=== PATIENT | male | born 1970 | race Caucasian/White ===

== ENCOUNTER 2022-04-01 04:23 | Emergency (ER) | payer BC, SELFPAY ==
--- NOTE | ~2022-04-01 | CT_ITS ---
EXAMINATION: CT abdomen pelvis wo con DATE: 04/01/2022 05:35 INDICATION: Right-sided flank pain TECHNIQUE: Computed tomography (CT) of the abdomen and pelvis was performed without intravenous contr ast. The dose-length product was 1343.76 mGy-cm. Automated exposure control and iterative reconstruct ion technique were employed. COMPARISON: CT dated 04/14/2013. FINDINGS: Lung bases are unremarkable. Heart size normal. No significant pleural or pericardial effus ion. There is a 2-3 mm stone in the bladder which may represent a recently passed stone or right UVJ stone. There is mild right hydronephrosis. There are liver cysts. The spleen, pancreas, adrenal glands and left kidney are unremarkable. No left hydronephrosis. There is a surgical anastomotic line in the distal colon. Colonic diverticulosis wit hout evidence for diverticulitis. Gallbladder is present. No significant vascular abnormality. No lym phadenopathy. No abnormal pelvic masses or fluid collections. IMPRESSION: 1. Bladder stone posteriorly on the right measuring 2-3 mm. This may represent a recently passed ston e or right UVJ stone. There is mild right hydronephrosis. Reviewed, dictated and finalized at location A. IMPRESSION: 1. Bladder stone posteriorly on the right measuring 2-3 mm. This may represent a recently passed stone or right UVJ stone. There is mild right hydronephrosis.
[2022-04-01 04:24] VITALS: BP 149/89; PULSE 85; RESP 26; TEMP 36.4; O2SAT 98
[2022-04-01] MEDS: ONDANSETRON INJ 4 MG/2 ML VIAL IV PUSH (04:45)
[2022-04-01] MEDS: MORPHINE SULFATE (*CRX) 4 MG/ML INJ IV PUSH (04:45)
[2022-04-01] MEDS: SODIUM CHLORIDE 0.9% IV 1,000 ML 999 ML IV CONT (04:50)
[2022-04-01 04:51] LABS: Basophils Percent Auto 0.4 % (0.2-1.2); Eosinophils Absolute Auto 0.3 K/mm3 (0-0.3); Hemoglobin 15.1 g/dL (14.0-18.0); Immature Granulocyte Absolute 0.04 K/mm3 (0.00-0.031); Immature Granulocyte Percent A 0.5 % (0-0.5); Lymphocytes Absolute Auto 2.66 K/mm3 (0.9-3.2); Lymphocytes Percent Auto 32.4 % (18.3-44.2); Mean Corpuscular HGB Conc 34.3 g/dl (32-36); Mean Corpuscular Volume 90.3 fl (80-100); Mean Platelet Volume 11.6 fl (7.4-10.4); Monocytes Absolute Auto 0.8 K/mm3 (0.1-0.6); Monocytes Percent Auto 9.6 % (2.6-8.5); Neutrophils Absolute Auto 4.4 K/mm3 (1.3-6.7); Neutrophils Percent Auto 54.1 % (45.5-73.1); Platelet Count Result 251 k/mm3 (150-375); Red Blood Count 4.87 M/mm3 (4.6-6.20); Red Cell Distribution Width 12.4 % (11.5-14.5); White Blood Count 8.2 K/mm3 (4.5-10.0)
[2022-04-01 05:05] LABS: Alanine Aminotransferase 33 U/L (6-50); Albumin Level 4.1 g/dL (3.5-5.1); Alkaline Phosphatase 145 U/L (38-126); Anion Gap 8 mmol/L (8-16); Aspartate Amino Transferase 28 U/L (17-59); Bilirubin,Total 0.4 mg/dL (0.2-1.3); Blood Urea Nitrogen 15 mg/dL (9-20); Calcium 8.6 mg/dL (8.4-10.2); Carbon Dioxide 25 mmol/L (22-30); Chloride 106 mmol/L (98-107); Estimated CRCL calculation 102 ml/min; Estimated Glomerular Filt Rate > 60; Glucose 139 mg/dL (65-110); Lipase 127 U/L (23-300); Potassium 3.6 mmol/L (3.4-5.0); Sodium 139 mmol/L (137-145)
--- NOTE | 2022-04-01 05:42 | ED.ABDPAIN ---
HPI - Abdominal Pain General Chief Complaint: Abdominal Pain Stated Complaint: Abd pain Time Seen by Provider: 04/01/22 04:31 Source: patient History of Present Illness HPI narrative: Patient presents with right flank pain. Patient ports symptoms started a couple hours ago and gotten progressively worse and unable to get comfortable so he came to the ER for evaluation. Reports his pain is primarily on his right abdomen radiates to his back into his groin. It is a sensation of being done a bowel movement but he has been unable to do so. Denies any hematuria or dysuria. He is unable to identify any clear aggravating or alleviating factors. Does report some nausea and vomiting but feels its related to the severity of his pain. Denies any fevers, chest pain, shortness of breath, lightheadedness, dizziness. Ports never pain like this before. Related Data Allergies Allergy/AdvReac Type Severity Reaction Status Date / Time No Known Allergies Allergy Unknown Unknown Verified 04/01/22 04:52 Review of Systems Review of Systems: CONSTITUTIONAL: Denies fever, chills, or sweats. EYES: Denies visual changes, redness, or discharge. ENT: Denies rhinorrhea, congestion, sore throat, or otalgia. CARDIOVASCULAR: Denies chest pain, palpitations, or edema. RESPIRATORY: Denies cough or dyspnea. GASTROINTESTINAL: Abdominal pain with nausea and vomiting GENITOURINARY: Denies dysuria or hematuria. SKIN: Denies rash or itching. MUSCULOSKELETAL: Denies back pain, joint pain, or myalgia. NEUROLOGIC: Denies headache, numbness, dizziness, or weakness. PSYCHIATRIC: Denies anxiety or depression. All systems reviewed & are unremarkable except as noted in HPI and below [facility] Past Medical History Medical History (Updated 04/01/22 @ 07:32 by Ben Calvillo MD) Hypertension Social History Social History (Updated 04/01/22 @ 05:44 by Ben Calvillo MD) Alcohol intake: current Exam Narrative: GENERAL: Well-appearing, well-nourished, and in no acute distress. HEAD: Normocephalic, atraumatic. EYES: PERRLA and EOMI. ENT: Nares clear, no rhinorrhea or epistaxis. Mucous membranes moist. NECK: Supple. No masses. No JVD CHEST: Clear to auscultation. No respiratory distress. No wheezes rales or rhonchi HEART: Regular rate and rhythm. No murmur heard. Normal peripheral pulses. ABDOMEN: Unable to reproduce pain with palpation of the right abdomen or back soft, nondistended. EXTREMITIES: Normal range of motion. No edema. SKIN: Warm, dry, no rash. NEURO: No focal deficits. Alert and oriented x3. PSYCH: Normal mood and affect. Course Reevaluation(s) Reevaluation #1: Patient reports feeling much improved results and plan reviewed with patient. Patient is comfortable with outpatient plan. Date: 04/01/22 Time: 07:31 Vital Signs Vital signs: Vital Signs Temperature 36.4 C L 04/01/22 04:24 Pulse Rate 85 04/01/22 04:24 Respiratory Rate 26 H 04/01/22 04:24 Blood Pressure 149/89 H 04/01/22 04:24 Pulse Oximetry 98 04/01/22 04:24 Oxygen Delivery Room Air 04/01/22 04:24 Temperature 36.4 C L 04/01/22 04:24 Pulse Rate 75 04/01/22 07:14 Respiratory Rate 16 04/01/22 07:14 Blood Pressure 159/94 H 04/01/22 07:14 Pulse Oximetry 96 04/01/22 07:14 Oxygen Delivery Room Air 04/01/22 04:24 MDM - Abdominal Pain MDM Narrative Medical decision making narrative: H&P as above, vss, pt looks clinically well, exam unable to reproduce pain, labs clinically unremarkable, img 2 x 1 UVJ stone versus bladder calculus, additional labs/img considered, symptomatic relief available as needed, on reevaluation pt continues to looks clinically well. Suspect ureteral stone, dns affected stone, pyelonephritis, acute kidney injury. plan to tx/monitor as op w/ pcm f/u findings/plan discussed with pt, pt agree/comfortable with plan, return precautions given Lab Data Result diagrams: 04/01/22 04:43 04/01/22 04:43 L
[2022-04-01] MEDS: KETOROLAC 15 MG/ML VIAL (*BKC) IV PUSH (06:06)
[2022-04-01 07:14] VITALS: BP 159/94; PULSE 75; RESP 16; O2SAT 96
[2022-04-01 07:51] LABS: Appearance Urine Clear (Clear); Bilirubin Urine Negative (Negative); Blood Urine Trace-lysed (Negative); Color Urine Yellow (Yellow); Glucose Urine UA 2+ mg/dL (Negative); Ketones Urine Trace mg/dL (Negative); Leukocyte Esterase Ur Negative LEU/UL (Negative); Nitrate Urine Negative (Negative); Protein Urine Negative (Negative); Urobilinogen Urine 0.2 mg/dL (<2.0); pH Urine 7.5 (5.0-9.0)
[2022-04-01 08:04] LABS: Mucus Urine Rare /lpf; Squamous Epithelial Cell Urine Rare /hpf (Few); WBC Urine 0-3 /hpf
[2022-04-01 08:05] LABS: Add Urine Microscopic? YES
[2022-04-01 08:08] VITALS: BP 157/101; PULSE 75; RESP 16; O2SAT 97
== END 2022-04-01 08:10 | disposition home or self-care (01) ==
PROVIDERS: Emergency Provider Emergency Medicine
DX: N13.2 Hydronephrosis with renal and ureteral calculous obstruction (principal); I10 Essential (primary) hypertension
CPT/HCPCS: 36415; 74176; 80053; 81001; 83690; 85025; 96361; 96374; 96375; 99284; J1885; J2270; J2405; J7030

== ENCOUNTER 2025-08-12 02:21 | Day surgery (SDC) | payer BC, SELFPAY ==
[2025-08-03 09:57] VITALS: BMI 26.5
[2025-08-12 10:17] VITALS: BP 133/89; PULSE 75; RESP 18; TEMP 36.6; O2SAT 97
[2025-08-12] MEDS: LACTATED RINGERS 1,000 ML 150 ML IV CONT (10:28)
--- NOTE | 2025-08-12 11:04 | P.PNAN_ITS ---
Anes - Initial Pre Proc Eval Procedure: Operation Date: 08/12/25 13:30 Proposed Procedures p Diagnostic Colonoscopy - Dada Alas MD Date/Time: 08/12/25 11:04 Surgeon: Dada Alas MD Pre Op Diagnosis: Diverticulitis of intestine Patient Data Age: 55 Gender: M Height: 1.78 m Weight: 82.1 kg Last Vital Signs Temp 97.8 F 08/12/25 10:17 Pulse 75 08/12/25 10:17 Resp 18 08/12/25 10:17 BP 133/89 08/12/25 10:17 Pulse Ox 97 08/12/25 10:17 O2 Del Method Room Air 08/12/25 10:17 Allergies Allergy/AdvReac Type Severity Reaction Status Date / Time No Known Allergies Allergy Unknown Unknown Verified 08/03/25 09:57 Home Medications ?Medication ?Instructions ?Recorded ?Confirmed ?Type tadalafil 5 mg tablet (Cialis) 5 mg PO DAILY 07/08/25 08/03/25 History Patient hx anesthesia problems: none Family hx anesthesia problems: none Results Review: All pre-operative results and documents have been reviewed as part of the pre- operative evaluation. [facility] Past Medical History Medical History Hypertension Social History Social History Smoking status: Former smoker Tobacco type: cigarettes Alcohol intake: current Drinks per week: 12 Substance use: current Substance use type: marijuana Other substance usage details: 2x week Living arrangements: alone Spiritual care concerns: No Anes - Eval Final PreProcedure Day of Procedure 08/12/25 11:04 Patient weight: overweight Lungs: normal air movement Airway: Mallampati scale class II Neurological: alert and oriented Last oral intake: >/= 8 hours ASA classification: II Emergent: no Anesthetic plan: proceed Anesthesia type and monitoring: general GIVS and standard monitoring Results Review: All pre-operative results and documents have been reviewed as part of the pre- operative evaluation. Borderline HTN, no meds ever, ex smoker quit 2004. Active w walking the [employer], no cp, mild dypsnea w inc speed. Informed Consent: The patient's anesthetic plan and its attendant risks and benefits were discussed with the patient/family/POA. Questions were solicited and answers provided to the satisfaction of the patient/family/POA.
--- NOTE | 2025-08-12 11:22 | P.HP_ITS ---
H&P: HPI History of Present Illness Date/Time: 08/12/25 11:22 Chief Complaint: Abdominal pain-occasional rectal bleeding Narrative: This patient had a partial colectomy in 2012 for recurrent diverticulitis. Despite this, he states that he has ?infections? recurrently requiring antibiotics prescribed over the phone by his primary care physician, but having a documented episode of diverticulitis by CT scan. He takes 2-3 days of antibiotics with relief of these episodes. His pain is described be located indistinctly in the right or left lower quadrants. He is referred for colonoscopy. Review of Systems Review of Systems: All systems reviewed & are unremarkable except as noted in HPI and below [facility] Past Medical History Medical History Hypertension Social History Social History Smoking status: Former smoker Tobacco type: cigarettes Alcohol intake: current Drinks per week: 12 Substance use: current Substance use type: marijuana Other substance usage details: 2x week Living arrangements: alone Spiritual care concerns: No Meds Home Medications and Allergies Home Medications ?Medication ?Instructions ?Recorded ?Confirmed ?Type tadalafil 5 mg tablet (Cialis) 5 mg PO DAILY 07/08/25 08/03/25 History Allergies Allergy/AdvReac Type Severity Reaction Status Date / Time No Known Allergies Allergy Unknown Unknown Verified 08/03/25 09:57 Vital Signs Vital Signs - 24 hr 08/12/25 10:17 Temperature 97.8 F Pulse Rate 75 Respiratory Rate 18 Blood Pressure 133/89 Pulse Oximetry 97 Oxygen Delivery Room Air Exam Const: General: cooperative and healthy appearing Resp: Effort & Inspection: normal respiratory effort and able to speak in complete sentences Auscultation: clear to auscultation bilaterally Cardio: Rate: regular rate Rhythm: regular rhythm GI: Inspection: normal to inspection GI Palp: No No hepatosplenomegaly present Auscultation: normal bowel sounds Rectal Exam: deferred Skin: General skin exam: normal color Psych: Appearance: grossly normal Mental Status: mental status grossly norm al Assessment and Plan Assessment and plan (1) Lower abdominal pain: Code(s): R10.30 - Lower abdominal pain, unspecified Status: Acute Assessment and Plan: The patient is deemed a good candidate for the procedure. Consent signed. Will proceed.
[2025-08-12] MEDS: SIMETHICONE ORAL SUSPENSION 20 MG/0.3 ML 30 ML BOTTLE 0.6 ML IRRIGATION (11:31)
[2025-08-12 11:37] VITALS: BP 90/61; PULSE 61; RESP 15; O2SAT 94
[2025-08-12 11:47] VITALS: BP 98/56; PULSE 57; RESP 14; O2SAT 95
[2025-08-12 11:57] VITALS: BP 108/79; PULSE 60; RESP 18; O2SAT 96
== END 2025-08-12 12:08 | disposition home or self-care (01) ==
PROVIDERS: PCP Nurse Practitioner; Referring Provider Nurse Practitioner Family; Visit Provider Internal Medicine Gastroenterology
PROC: 0DJD8ZZ Inspection of Lower Intestinal Tract, Via Natural or Artificial Opening Endoscopic (ICD-10-PCS; CPT 45378; principal; 2025-08-12 13:30)
DX: R10.30 Lower abdominal pain, unspecified (principal); K57.30 Diverticulosis of large intestine without perforation or abscess without bleeding; K64.8 Other hemorrhoids; Z98.0 Intestinal bypass and anastomosis status; Z90.49 Acquired absence of other specified parts of digestive tract; Z87.19 Personal history of other diseases of the digestive system; F12.90 Cannabis use, unspecified, uncomplicated; Z87.891 Personal history of nicotine dependence
CPT/HCPCS: 45378; J2704; J7120